=== PATIENT | male | born 1985 | race Hispanic/Latino ===

== ENCOUNTER 2016-12-15 05:59 | Emergency (ER) | payer OTHER ==
[~2016-12-15] VITALS: Ht 170.2 cm; Wt 97.7 kg
[~2016-12-15 05:59] MED LIST: ALBUTHFA INH; QVAR80 INH
[2016-12-15 06:03] VITALS: BP 141/86; PULSE 84; RESP 16; O2SAT 97
--- NOTE | 2016-12-15 06:04 | ED.REPORT ---
HPI-Headache Date of Service Dec 15, 2016 ED Provider: Gelacio Overton Patient is a 31 year old male who presents to the ED complaining of a throbbing headache onset last night around 2014. His pain prevented him from sleeping. Associated symptoms include nausea, vomiting, and very mild neck pain. He denies injury, fever, vision changes, photophobia, numbness, tingling, weakness , trouble walking, or any other symptoms. He took ibuprofen and aspirin last night without relief. He has had headaches before but never as severe. Per spouse, he has not slept well for the past week due to seasonal allergies. Nursing Notes Stated Complaint: HEADACHE Chief Complaint: Headache Nursing Notes Reviewed: Yes Allergies: Coded Allergies: No Known Allergies (Unverified , 04/21/13) Scheduled Beclomethasone-Expunged Drug, Do Not Renew! ([id number] Drug, Do Not Renew !) 80 Mcg Puff 1-2 PUFF INH DAILY SHAKE WELL*RINSE MOUTH AFTER USE* Scheduled PRN Albuterol-Expunged Drug, Do Not Renew! (Albuterol-Expunged Drug, Do Not Renew!) 90 Mcg/Puff Hfa.aer.ad 2 PUFF INH Q4-6H PRN PRN For Wheezing or Shortness of Breath General Time Seen by MD: 06:04 Chief Complaint Headache Hx Obtained From: Patient, Spouse Arrived By: Walk-in Sudden in Onset?: Yes Onset Occurred: 9 - 12 hours ago Symptom Duration: Since onset Risk-Headache )( SAH Risk Stratification No Anticoagulation therapy, No Hypertension, No Polycystic kidney disease RF Statements: Risk factors reviewed )( IC Mass Risk Stratification No HIV, No Malignancy RF Statements: Risk factors reviewed Past Medical History Past Medical History Reports: Asthma Past Surgical History Reports: Cholecystectomy Smoking History Never Smoker Social History Drug Use: Denies drug use Other Social History: Good social support Ambulatory Status Independent Review of Systems Constitutional: Denies: Fever Eyes: Denies: Photophobia, Visual loss bilateral GI: Reports: Nausea, Vomiting Musculoskeletal: Reports: Neck pain (Mild) Neurologic: Reports: Headache, Denies: Numbness, Problem walking, Weakness Complete sys rev & neg: except as marked. Physical Exam Initial Vital Signs Vital Signs (First) Date Time Temp Pulse Resp B/P Pulse Ox O2 Delivery O2 Flow Rate FiO2 4/16/17 06:03 36.7 84 16 141/86 97 Room Air Initial VS: Reviewed Abdomen / GI: Soft, Non-tender Skin: Warm, Dry Psychiatric: Mood/affect normal, Behavior normal, Normal thought content General/Constitutional: Awake, Alert, Well appearing, Well developed Head / Eyes: Atraumatic, Normocephalic, PERRL Neck: Atraumatic, Supple Neurologic: Oriented X3, Speech NL ENT: Airway patent, Mucous membranes moist, Pharynx NL Respiratory / Chest: Atraumatic, No respiratory distress Wheezing / Retractions: Positive: Wheezing mild (Pt. reports baseline ) Re-Eval/Medical Decision Re-Evaluation/Progress : Time of Eval: 07:06 Re-Evaluation/Progress Note: Rechecked patient. His nausea is resolved and his headache is nearly gone. He would like to go home. Discussed plan for discharge. Patient understands and agrees with plan. All questions addressed at this time. Counseled Regarding: Diagnosis, Need for follow-up, When/why to return to ED Discharge & Departure Impression: Primary Impression: Headache Headache type: unspecified Headache chronicity pattern: acute headache Intractability: not intractable Qualified Code: R51 - Headache Disposition: Home Discharge Condition All VS Reviewed: Yes Condition: Stable Patient Instructions: Acute Headache (ED) Additional Instructions: Thank you for entrusting us with your care today. No dangerous cause for your headache is discovered this morning. I am glad you are feeling somewhat better. If you experience sever headaches in the future, you may take 800 mg of Ibuprofen and/or 1000mg of Tylenol. Follow-up with your doctor next week if the headache persists to any significant degree. Return to the emergency department if you experience numbness, weakness, vision changes, or any other new or worsening symptoms. Referrals: Zenaida Carballo MD (PCP) copies to: Zenaida Carballo MD, Kirk H MD Dec 15, 2016 06:04 SAMIRA RIZVI Dec 15, 2016 06:12
[2016-12-15] MEDS ORDERED: Acetaminophen IV 1,000 MG in IV Premix 1 EACH IV ONE (06:10)
[2016-12-15] MEDS ORDERED: MetoCLOpramide 5 mg/mL 2 mL Inj IVPUSH ONE (06:10)
[2016-12-15] MEDS ORDERED: 0.9% Sodium Chloride 1,000 ML IV ONE (06:10)
[2016-12-15] MEDS ORDERED: Dexamethasone 10 mg/mL Inj IVPUSH ONE (06:10)
[2016-12-15] MEDS ORDERED: Ondansetron 2 mg/mL 2 mL Inj IVPUSH ONE (06:10)
== END 2016-12-15 07:20 | disposition home or self-care (01) ==
LOC: SED 05:59
DX: R51 Headache (principal); R11.2 Nausea with vomiting, unspecified; M54.2 Cervicalgia; J45.909 Unspecified asthma, uncomplicated
CPT/HCPCS: 96361; 96374; 96375; 99284; J1100; J1200; J1885; J2405; J2765; J7030

== ENCOUNTER 2017-05-03 14:21 | Emergency (ER) | payer OTHER ==
[~2017-05-03] VITALS: Ht 172.7 cm; Wt 98.2 kg
[2017-05-03 14:31] VITALS: BP 121/81; PULSE 89; RESP 18; O2SAT 98
[2017-05-03 15:28] LABS: BASOPHILS % (AUTO) 0.5 % (0-3); EOSINOPHILS % (AUTO) 3.9 % (0-5); MONOCYTES % (AUTO) 8.3 % (4-12); Mean Corpuscular Hemoglobin 22.3 pg (27.0-35.0); Mean Corpuscular Volume 72.4 fL (81-100); NEUTROPHILS % (AUTO) 53.1 % (40-74); Platelet Count 363 bil/L (150-400)
[2017-05-03] MEDS ORDERED: BECL8.7A6 INHALATION (15:45)
[2017-05-03] MEDS ORDERED: ALBU8.5H2 INHALATION (15:45)
[2017-05-03 15:47] LABS: Magnesium 2.1 mg/dL (1.6-2.6)
--- NOTE | 2017-05-03 16:18 | ED.REPORT ---
HPI-Abd Pain M Under 41 Date of Service May 03, 2017 ED Provider: Trevor Schultz DO Pt is a healthy 31 y/o male presenting to the ED with his due to anemia found on lab work. The patient has had chronic abdominal discomfort for 15 years. The patient recently had a f/u with his PCP Dr. Carballo for bronchitis at which time he was feeling fatigued with associated nausea, chills, and joint pain. He had blood work taken to further evaluate his chronic abdominal pain. The bloodwork showed signs of anemia and he was called and told to have another blood test which found his HGB to be slightly lower and therefore was told to come to the ED. This morning he had dark-colored diarrhea which he provided as a stool sample to the lab prior to arriving. Pt denies vomiting. After his workup he tells me that he regularly gives blood but stopped giving it 3 months ago because he was told he had iron deficiency. Nursing Notes Stated Complaint: POSS GI BLEED,SENT FROM URGENT CARE Chief Complaint: Male Abdominal Pain Nursing Notes Reviewed: Yes Allergies: Coded Allergies: No Known Allergies (Unverified , 04/21/13) Scheduled Ascorbic Acid (Vitamin C) 250 Mg Tab.chew 250 MG PO BID Beclomethasone Dipropionate (Qvar) 8.7 Gm Aer.w.adap 1-2 PUFF INHALATION BID Ferrous Sulfate (Ferrous Sulfate) 325 Mg Tablet 325 MG PO TID Scheduled PRN Albuterol HFA (Proair HFA) 8.5 Gm Hfa.aer.ad 2 PUFFS INHALATION Q4-6Hrs PRN PRN For Shortness of Breath Docusate Sodium (Colace) 100 Mg Capsule 100 MG PO BID PRN PRN For Constipation General Time Seen by MD: 16:14 Chief Complaint Other (Anemia) Hx Obtained From: Patient Arrived By: Walk-in Sudden in Onset?: No Onset Occurred: Onset unknown Symptom Duration: Since onset Progression since Onset: Constant Location: : Diffuse Quality: Aching Severity: Current: Mild Severity: Maximum: Mild Recent Healthcare: Recent doctor visit, Recent testing, Previous diagnosis Past Medical History Past Medical History Chronic abdominal discomfort for 15 years Asthma Past Surgical History Cholecystectomy Smoking History Never Smoker Social History Drug Use: Denies drug use Other Social History: Good social support Ambulatory Status Independent Review of Systems Constitutional: Reports: Fatigue, Denies: Chills, Fever Respiratory: Denies: Shortness of breath Cardiovascular: Denies: Chest pain GI: Reports: Abdominal pain, Bloody/tarry stool (possible tarry), Diarrhea, Nausea, Denies: Vomiting Musculoskeletal: Reports: Joint pain Complete sys rev & neg: except as marked. Physical Exam Initial Vital Signs Vital Signs (First) Date Time Temp Pulse Resp B/P Pulse Ox O2 Delivery O2 Flow Rate FiO2 05/03/17 14:31 36.9 89 18 121/81 98 Room Air Initial VS: Reviewed, Vital signs normal Head / Eyes: Atraumatic, Normocephalic ENT: Mucous membranes moist, Conjunctiva normal Neck: Full range of motion Extremities: Vascular intact, Neuro intact, No swelling Skin: Warm, Dry, No cyanosis Neurologic: Alert, Oriented, Nonfocal Psychiatric: Mood/affect normal, Behavior normal, Normal thought content General/Constitutional: Awake, Alert, No acute distress, Well appearing, Cooperative, Not toxic appearing Respiratory / Chest: Breath sounds NL, Breath sounds = bilat, No respiratory distress, No rales, No rhonchi, No wheezing, No retractions, No stridor Cardiovascular: Heart rate NL, Regular rhythm, Heart sounds NL, No gallop, No murmurs, No rubs, Cap refill not delayed, Peripheral circulation NL, Pulses = bilaterally Abdomen: Atraumatic, Soft, Non-tender, No guarding, No rebound, No distention, No palpable mass Back: Full range of motion, Painless range of motion Rectum / Perineum: Atraumatic, Blood - occult heme -, No gross blood, No hemorrhoids Light brown stool Interpretation & Diagnostics Lab Results Interpretation Result Diagram: 05/03/17 1522 05/03/17 1522 Test 05/03/17 15:22 05/03/17 15:38 05/03/17 16:29 White Blood Count 6.6th/mm3 (3.8-10.1) Red Blood Count 4.31mil/mm3 (4.40-5.80) Hemoglobin 9.6g/dL (13.8-17.2) Hematocrit 31.2% (41.0-50.0) Mean Corpuscular Volume 72.4fL (81-100) Mean Corpuscular Hemoglobin 22.3pg (27.0-35.0) Mean Corpuscular Hemoglobin Concent 30.8% (32.0-37.0) Red Cell Distribution Width 16.5% (12.3-15.4) Platelet Count 363bil/L (150-400) Neutrophils (%) (Auto) 53.1% (40-74) Lymphocytes (%) (Auto) 34.0% (14-46) Monocytes (%) (Auto) 8.3% (4-12) Eosinophils (%) (Auto) 3.9% (0-5) Basophils (%) (Auto) 0.5% (0-3) Sodium Level 143mEq/L (134-144) Potassium Level 3.8mEq/L (3.5-5.2) Chloride Level 105mEq/L (97-108) Carbon Dioxide Level 24mmol/L (18-29) Blood Urea Nitrogen 14mg/dL (6-20) Creatinine 0.85mg/dL (0.76-1.27) Estimat Glomerular Filtration Rate 112mL/min (>59) Glucose Level 78mg/dL (60-99) Calcium Level 9.4mg/dL (8.5-10.1) Magnesium Level 2.1mg/dL (1.6-2.6) Iron Level 17ug/dL (35-150) Total Iron Binding Capacity 350ug/dL (250-450) Percent Iron Saturation 5%sat (15-50) Unsaturated Iron Binding 332.5ug/dL Total Bilirubin 0.4mg/dL (0.0-1.2) Aspartate Amino Transf (AST/SGOT) 31U/L (0-50) Alanine Aminotransferase (ALT/SGPT) 33U/L (0-44) Alkaline Phosphatase 103U/L (25-150) Total Protein 7.4g/dL (6.4-8.4) Albumin 4.4g/dL (3.4-5.0) Lipase 60U/L (13-60) Hold Boland Top Tube Received (Received) Hold Urine Received (Received) Re-Eval/Medical Decision Med Decision/Clinical Course Patient presents with concerns for GI bleeding. Stool guaiac is negative. Stool is light brown in color. Abdominal exam is benign. Patient has a history of iron deficiency anemia probably diagnosed 3 months ago while giving blood however at this point is mildly anemic. Iron studies confirm a low iron level. Patient has no severe or life-threatening symptoms that would suggest that he needs an emergent transfusion. Will be started on iron, vitamin C and stool softeners. Already prescribed PPI therapy. Strongly recommend close outpatient follow-up with PCP and GI for further delineation as to the cause of iron deficiency anemia. Return and follow-up precautions given Source of Hx: Old records Re-Evaluation/Progress : Time of Eval: 17:31 Re-Evaluation/Progress Note: Pt rechecked. Informed pt of plan for discharge. Pt understands and agrees with plan for discharge. F/U instructions and RTER warnings given. All questions addressed. Counseled Regarding: Diagnosis, Lab results, Need for follow-up, When/why to return to ED Patient Discharge & Departure Primary Impression: Iron deficiency anemia Iron deficiency anemia type: unspecified iron deficiency Qualified Code: D50.9 - Iron deficiency anemia, unspecified Disposition: Home Discharge Condition All VS Reviewed: Yes Condition: Stable Patient Instructions: Iron Deficiency Anemia (ED) Additional Instructions: You were labs show that you have an iron deficiency anemia. Your stool exam shows no evidence of bleeding. You should begin taking iron, vitamin C, and stool softeners (as needed) in order to improve your iron level. Continue your omeprazole You will definitely need further evaluation of this. Call your regular doctor after the weekend and schedule a follow-up appointment. Also you will need to follow-up with GI and most likely will need an endoscopy. Return to the ER as needed for gastrointestinal bleeding, severe lethargy, high fever, severe abdominal pain or other concerns. Referrals: Zenaida Carballo MD (PCP) Scribe Attestation Portions of this note were transcribed by Sancho Adne. I, Dr. Schultz personally performed the history, physical exam and medical decision-making; I reviewed and confirmed the accuracy of the information in the transcribed note. copies to: Zenaida Carballo MD, Timothy Teetee MCCORMACK May 03, 2017 16:18 SANCHO ADEN May 03, 2017 16:27
[2017-05-03 17:04] LABS: Unsaturated Iron Binding 332.5 ug/dL
[2017-05-03 17:24] VITALS: BP 142/80; PULSE 73; RESP 20; O2SAT 98
[2017-05-03] MEDS ORDERED: FERR-83 PO (17:27)
[2017-05-03] MEDS ORDERED: ASCO250T7 PO (17:27)
[2017-05-03] MEDS ORDERED: DOCU-41 PO (17:27)
[2017-05-03 17:38] VITALS: BP 142/80; PULSE 73; RESP 20; O2SAT 98
== END 2017-05-03 17:38 | disposition home or self-care (01) ==
LOC: SED 14:21
DX: D50.9 Iron deficiency anemia, unspecified (principal); R10.84 Generalized abdominal pain; J45.909 Unspecified asthma, uncomplicated; Z90.49 Acquired absence of other specified parts of digestive tract